=== PATIENT | female | born 1985 | race African-American/Black ===

== ENCOUNTER 2020-12-23 21:40 | Emergency (ER) | payer MEDICAID, SELFPAY ==
[2020-12-23 21:42] VITALS: BP 143/83; PULSE 89; RESP 17; TEMP 37.1; O2SAT 97; BMI 33.5
[2020-12-23 21:52] VITALS: BMI 33.5
--- NOTE | 2020-12-23 21:56 | CT_ITS ---
PROCEDURE INFORMATION: Exam: CT Abdomen And Pelvis With Contrast Exam date and time: 12/23/2020 9:56 PM Age: 35 years old Clinical indication: Nausea and vomiting; Abdominal pain; Localized; Prior surgery; Surgery date: 6+ months; Surgery type: Left fallopian tube removed; Patient HX: N/v, lower abd/pelvic pain; Additional info: Nausea, vomiting, diarrhea TECHNIQUE: Imaging protocol: Computed tomography of the abdomen and pelvis with contrast. Radiation optimization: All CT scans at this facility use at least one of these dose optimization techniques: automated exposure control; mA and/or kV adjustment per patient size (includes targeted exams where dose is matched to clinical indication); or iterative reconstruction. Contrast material: ISOVUE; Contrast volume: 75 ml; Contrast route: IV; COMPARISON: No relevant prior studies available. FINDINGS: Lungs: There are very mild patchy ground-glass infiltrates within the left lower lobe, lingula, right middle lobe and right lower lobe. Heart: The cardiac chambers are grossly normal. Liver: Mild hepatic steatosis. Gallbladder and bile ducts: Unremarkable without gallstones. No intra or extrahepatic ductal dilation. Pancreas: No peripancreatic inflammatory infiltration or fluid. No ductal dilation. Spleen: No splenomegaly or splenic mass. Adrenal glands: Normal. No mass. Kidneys and ureters: No nephrolithiasis, ureterolithiasis or hydronephrosis. Stomach and bowel: There is mild diverticulosis in the sigmoid colon but no diverticulitis identified. There is no small bowel obstruction or ileus. Detail of the gastric wall is compromised by poor distention of the stomach. Appendix: No evidence of appendicitis. No appendicolith. Intraperitoneal space: No free fluid, free air or focal inflammatory infiltration. Vasculature: Phleboliths are incidentally noted in the pelvis. Lymph nodes: No enlarged lymph nodes within the retroperitoneal space or mesentery. Urinary bladder: Unremarkable as visualized. Reproductive: Unremarkable as visualized. Bones/joints: Unremarkable. No acute fracture. No osteolytic or blastic bone lesions. Soft tissues: Paraspinous and extracorporeal soft tissues are unremarkable. IMPRESSION: 1. Mild sigmoid diverticulosis but no diverticulitis. 2. Mild hepatic steatosis. 3. Very mild patchy ground-glass infiltrates in the left lower lobe, lingula, right middle lobe and right lower lobe.
[2020-12-23 22:07] LABS: Microscopic, Urine URINE MICROSCOPIC (MICROSCOPIC)
[2020-12-23 22:12] LABS: Basophils # 0.1 K/mm3 (0-0.2); Basophils % 0.5 % (0.1-2.0); Eosinophils # 0.3 K/mm3 (0.0-0.4); Eosinophils % 2.1 % (0.1-12.0); Hematocrit 39.4 % (37.0-47.0); Hemoglobin 13.4 g/dL (12.2-16.2); Lymphocytes % 21.3 % (10-50); Mean Corpuscular Hemoglobin 28.5 pg (27.0-31.2); Mean Corpuscular Volume 83.8 fl (81-99); Mean Platelet Volume 7.7 fl (7.4-10.4); Monocytes # 0.4 K/mm3 (0.1-1.0); Monocytes % 2.9 % (1.7-9.3); Neutrophils # 10.3 K/mm3 (1.8-7.8); Neutrophils % 73.3 % (37.0-80.0); Platelet Count 292 K/mm3 (142-424); Red Blood Count 4.69 M/mm3 (4.20-5.40); Red Cell Distribution Width 14.6 % (11.5-17.5)
[2020-12-23 22:12] LABS: Appearance,Urine CLOUDY (Clear); Bilirubin,Urine Negative (Negative); Blood, Urine Negative (Negative); Color,Urine YELLOW (Yellow); Glucose,Urine (UA) Negative (Negative); Ketones,Urine Negative (Negative); Leukocyte Esterase,Urine Negative (Negative); Nitrate,Urine Negative (Negative); Protein,Urine Negative (Negative); Specific Gravity, Urine >= 1.030 (1.005-1.030); Urobilinogen,Urine 0.2 EU/dl (0.2)
[2020-12-23 22:15] LABS: Alanine Aminotransferase 16 U/L (12-78); Albumin Level 4.3 g/dl (3.5-5.0); Albumin/Globulin Ratio 1.2 (1.1-1.8); Alkaline Phosphatase 130 U/L (38-126); Amylase 55 U/L (30-110); Anion Gap 11.2 mEq/L (5-15); Aspartate Amino Transferase 29 U/L (14-36); Bilirubin,Total 0.5 mg/dl (0.2-1.3); Blood Urea Nitrogen 3 mg/dl (7-17); Carbon Dioxide 25 mmol/L (22.0-30.0); Chloride 106 mmol/L (98-107); Creatinine Clearance Estimated 193 mL/min (50-200); Estimated Glomerular Filt Rate 95 ml/min (>60); GFR (African American) 115 ML/MIN (>60); Globulin 3.5 g/dL (1.3-3.2); Glucose 102 mg/dl (74-100); Lipase 35 U/L (23-300); Potassium 3.2 mmoL/L (3.5-5.1); Sodium 139 mmol/L (136-145); Total Protein,Serum 7.8 g/dl (6.3-8.2)
[2020-12-23 22:19] LABS: Bacteria,Urine 3+ /lpf; Mucus,Urine 3+ /lpf; Urine Pregnancy, HCG Qual. Negative (Negative); WBC,Urine 20-50 #/hpf (0-3)
[2020-12-23 22:34] LABS: Procalcitonin 0.035 ng/mL (0.0-2.0)
[2020-12-23 22:36] LABS: Erythrocyte Sedimentation Rate 47 mm/hr (0-20)
--- NOTE | 2020-12-23 22:37 | PC.NURSE ---
pt returned from ct
--- NOTE | 2020-12-23 23:06 | XR_ITS ---
PROCEDURE INFORMATION: Exam: XR Chest Exam date and time: 12/23/2020 11:06 PM Age: 35 years old Clinical indication: Cough and shortness of breath; Patient HX: Cough, SOA, smoker; Additional info: Cough at night TECHNIQUE: Imaging protocol: XR of the chest. Views: 2 views. COMPARISON: CT ABDOMEN PELVIS W CON 12/23/2020 10:28 PM FINDINGS: Lungs: The lungs are clear without consolidation. Pleural spaces: Unremarkable. No pleural effusion. No pneumothorax. Heart/Mediastinum: The cardiac silhouette, mediastinal contours and hilar shadows appear unremarkable. Bones/joints: Osseous structures grossly intact. IMPRESSION: No acute cardiopulmonary disease.
[2020-12-23 23:22] LABS: Coronavirus 19, PCR Not Detected (NotDetected); Influenza A, PCR Not Detected (NotDetected); Influenza B, PCR Not Detected (NotDetected)
--- NOTE | 2020-12-23 23:47 | [facility].EDNVD ---
ED Disposition Clinical Impression: Gastroenteritis, Cough in adult Disposition: Home, Self-Care Condition on Discharge: Good Instructions: DI for Diarrhea and Traveler's Diarrhea -- Adult Additional Instructions: fluids and see pcp for follow up Referrals: Provider,Referral, [Primary Care Provider] - - Critical Care Critical Care Time: No Attestation: On 12/23/20, the high probability of a clinically significant, sudden or life threatening deterioration of the following system(s) required my full and direct attention, intervention and personal management. The time I documented below is in addition to time spent performing reported procedures but includes the following listed in this critical care notation. Medical Decision Making - Medical Records Medical records reviewed: Yes: I reviewed the patient's medical records. - Arnie Inquiry Pt receiving controlled substance: No Vital Signs: 12/23/20 21:42 Temperature 98.8 F Temperature Source Oral Pulse Rate [Right] 89 Respiratory Rate 17 Blood Pressure [Right Arm] 143/83 H Blood Pressure Mean [Right Arm] 103 Blood Pressure Position [Right Arm] Supine 02 Sat by Pulse Oximetry 97 Oxygen Delivery Method Room Air - Lab Data Lab results reviewed: Yes: I reviewed the patient's lab results. Lab Results 12/23/20 21:52: WBC 14.0 H, RBC 4.69, Hgb 13.4, Hct 39.4, MCV 83.8, MCH 28.5, MCHC 34.0, RDW 14.6, Plt Count 292, MPV 7.7, Neut % (Auto) 73.3, Lymph % (Auto) 21.3, [place] % (Auto) 2.9, Eos % (Auto) 2.1, Baso % (Auto) 0.5, Neut # (Auto) 10.3 H, Lymph # (Auto) 3.0, [place] # (Auto) 0.4, Eos # (Auto) 0.3, Baso # (Auto) 0.1, ESR 47 H 12/23/20 21:52: Sodium 139, Potassium 3.2 L, Chloride 106, Carbon Dioxide 25, Anion Gap 11.2, BUN 3 L, Creatinine 0.70, Estimated Creat Clear 193, Estimated GFR 95, Est GFR ( Amer) 115, Glucose 102 H, Calcium 9.0, Total Bilirubin 0.5, AST 29, ALT 16, Alkaline Phosphatase 130 H, C-Reactive Protein 12.0 H, Total Protein 7.8, Albumin 4.3, Globulin 3.5 H, Albumin/Globulin Ratio 1.2, Amylase 55, Lipase 35, Procalcitonin 0.035 12/23/20 21:56: Urine Color Yellow, Urine Appearance Cloudy, Urine pH 5.0, Ur Specific [place] >= 1.030, Urine Protein Negative, Urine Glucose (UA) Negative, Urine Ketones Negative, Urine Blood Negative, Urine Nitrate Negative, Urine Bilirubin Negative, Urine Urobilinogen 0.2, Ur Leukocyte Esterase Negative, Urine WBC 20-50, Ur Squamous Epith Cells 10-20, Urine Bacteria 3+, Urine Mucus 3+ 12/23/20 21:56: Urine HCG, Qual Negative 12/23/20 23:15: SARS-CoV-2 (PCR) Not detected, Influenza A Untype (PCR) Not detected, Influenza Type B (PCR) Not detected Result diagrams: 12/23/20 21:52 12/23/20 21:52 Orders (Tests/Meds): ED MEDICATIONS Generic Name Dose Route Start Last Admin Trade Name Freq PRN Reason Stop Dose Admin Sodium Chloride 1,000 mls @ 999 mls/hr 12/23/20 22:00 12/23/20 22:21 Sod Chlor 0.9% 1000ml Bag IV 12/23/20 23:00 999 mls/hr .Q1H1M AMINATA Administration Sodium Chloride 8 ml 12/23/20 21:56 Sodium Chloride 0.9% 10ml Vial IV 01/22/21 21:55 NEEDED PRN dilute pepcid Discontinued Medications Generic Name Dose Route Start Last Admin Trade Name Freq PRN Reason Stop Dose Admin Famotidine 20 mg 12/23/20 21:56 12/23/20 22:26 Famotidine 20mg/2ml Vial IV 12/23/20 21:57 20 mg ONCE ONE Administration Iopamidol 75 ml 12/23/20 22:38 12/23/20 22:39 Iopamidol-370 (76%);100ml Bottle IV 12/23/20 22:39 75 ml ONCE ONE Administration Ketorolac Tromethamine 30 mg 12/23/20 22:26 12/23/20 22:26 Ketorolac 30mg/Ml Vial IV 12/23/20 22:27 30 mg ONCE ONE Administration Metoclopramide HCl 10 mg 12/23/20 21:56 12/23/20 22:26 Metoclopramide Hcl 10mg/2ml Vial IVP 12/23/20 21:57 10 mg ONCE ONE Administration Ondansetron HCl 4 mg 12/23/20 21:56 12/23/20 22:26 Ondansetron 4mg/2ml Vial IV 12/23/20 21:57 4 mg ONCE ONE Administration Sodium Chlorid
[2020-12-24 00:13] VITALS: BP 140/82; PULSE 81; RESP 16; TEMP 36.9; O2SAT 98
== END 2020-12-24 00:17 | disposition home or self-care (01) ==
PROVIDERS: Emergency Provider Emergency Medicine; PCP Family Medicine
DX: K52.9 Noninfective gastroenteritis and colitis, unspecified (principal)
CPT/HCPCS: 71046; 74177; 80053; 81001; 81025; 82150; 83690; 84145; 85025; 85651; 86140; 87086; 96365; 96375; 99283; J2405; Q9967; U0003